=== PATIENT | male | born 1950 | race Caucasian/White ===

== ENCOUNTER → 2024-07-30 15:39 | Outpatient (CLI) | payer MEDICARE, SELFPAY ==
--- NOTE | 2024-07-30 15:44 | DI.ECHO.S_ITS ---
[facility] : : [address] : : [place] : : [id number] : : Phone: [phone] Echocardiogram Report + + :Name: OK INETO Study Date: 07/30/2024 Height: 69 in : :[facility] ReadingLocation: Weight: 165 lb : : Gender: Male BSA: 1.9 m2 : :: 1950 Age: 74 yrs BP: 145/86 mmHg: :Reason For Study: CAD : :Ordering Physician: DORYS, : :BYRON Performed By: Ronny Sykes : :Referring: [id number] : + + Interpretation Summary The study quality was technically difficult. Grossly normal left ventricle size with ejection fraction 60-65%. Nodular calcification of the non-coronary cusp. No valvular regurgitation. Procedure: A two-dimensional transthoracic echocardiogram with color flow and Doppler was performed. The study quality was technically difficult. There is no prior echocardiogram noted for this patient. The patient was in normal sinus rhythm during the exam. Left Ventricle: The left ventricle is grossly normal size. There is no ventricular septal defect visualized. The ejection fraction is estimated to be 60-65%. There are no obvious focal wall motion abnormalities noted but poor endocardial definition reduces the sensitivity for the detection of such. Right Ventricle: The right ventricle is normal in size and function. Atria: The left atrial size is normal. Right atrial size is normal. There is no Doppler evidence for an atrial septal defect. Mitral Valve: The mitral valve is normal in structure and function. There is no mitral regurgitation noted. Aortic Valve: The aortic valve is trileaflet. The aortic valve opens well. Nodular calcification of the non-coronary cusp. No aortic regurgitation is present. Tricuspid Valve: The tricuspid valve is normal in structure and function. No tricuspid regurgitation. Pulmonic Valve: The pulmonic valve is normal in structure and function. There is no pulmonic valvular regurgitation. Great Vessels: The aortic root is normal size. The dimensions of the ascending aorta are normal. The pulmonary artery is normal size. The IVC is of normal diameter and collapses greater than 50% with a sniff. This suggests a low right atrial pressure of 3 mm Hg. Pericardium/ Pleura There is no pericardial effusion. There is no pleural effusion. MMode/2D Measurements & Calculations LVIDd: 4.9 cm LVOT diam: 2.3 cm LVIDs: 3.1 cm Ao root diam: 3.5 cm FS: 35.8 % asc Aorta Diam: 3.6 cm EPSS: 0.82 cm IVSd: 1.0 cm LVPWd: 1.00 cm LV cordova. diameter/BSA (cm/m^2): 2.6 LV sys. diameter/BSA (cm/m^2): 1.6 LA A2 area: 19.8 cm2 RA long axis: 4.6 cm LA A4 area: 15.3 cm2 RA area: 13.7 cm2 LA length (vol): 4.6 cm RA vol: 34.4 ml LA vol: 56.2 ml RA : 18.1 ml/m2 LA vol index: 29.5 ml/m2 IVC diam: 1.8 cm RVD1 (basal): 3.1 cm RVD2 (mid): 2.7 cm TAPSE: 2.0 cm Doppler Measurements & Calculations Ao V2 max: 137.4 cm/sec LVOT Max Rodney: 95.9 cm/sec Ao V2 mean: 94.1 cm/sec LV V1 max P.7 mmHg Ao max P.6 mmHg LV V1 VTI: 18.9 cm Ao mean P.0 mmHg DEMETRIUS(I,D): 3.4 cm2 Ao V2 VTI: 24.0 cm DEMETRIUS(V,D): 3.0 cm2 sev ratio: 0.79 DEMETRIUS indexed to BSA (cm^2/m^2): 1.8 MV E max rodney: 47.5 cm/sec PA V2 max: 88.5 cm/sec MV A max rodney: 87.3 cm/sec PA V2 mean: 58.1 cm/sec MV E/A: 0.54 PA mean P.5 mmHg Med Peak E' Rodney: 3.8 cm/sec PA pr(Accel): 56.7 mmHg E/E' med: 12.4 Lat Peak E' Rodney: 5.8 cm/sec E/E' lat: 8.2 E/e' average: 10.3 MV dec time: 0.20 sec SV(LVOT): 80.5 ml Electronically signed by: Mahamed Fuentes on Reading Physician:07/30/2024 06:41 PM
== END ==
PROVIDERS: Referring Provider Physician Assistant; Visit Provider Physician Assistant
DX: I35.8 Other nonrheumatic aortic valve disorders (principal); I25.10 Atherosclerotic heart disease of native coronary artery without angina pectoris
CPT/HCPCS: 93306